=== PATIENT | male | born 1980 | race Caucasian/White ===

== ENCOUNTER 2020-09-20 15:42 | Emergency (ER) | payer OTHER ==
[~2020-09-20] VITALS: Ht 180.3 cm; Wt 79.9 kg
--- NOTE | 2020-09-20 15:54 | PHYS DOC ---
Adult General HPI HPI Patient is a 40-year-old male presents emergency department complaining of left- sided chest pain for the past 4 days. Patient states "I think this is post Covid stuff ", patient states that he was positive for the COVID-19 virus 2 months ago. Patient denies any recent trauma to his chest. 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 Patient rates his pain at a 5/10 1-10 pain scale. Patient states it started when he woke up 4 days ago. Patient reports that it hurts worse to take a deep breath and also hurts worse if he moves his arms. Patient states he has noticed a very minor cough with production of a small amount of yellowish colored sputum over the p ast 3 to 4 days. Patient denies any diaphoretic episodes, denies any nausea or vomiting. Patient states that 4 days ago he did feel little dizzy while he was at his computer but it resolved that day and has not had any dizziness over the past 3 days. Patient denies any recent fever or chills, shortness of breath, increased thirst or increased urination, denies urinary problems, denies numbness or tingling to his extremities. Patient denies any nasal congestion patient denies any sensory changes, denies loss of taste or smell, denies headaches. Patient states no one else living in his home is having the same symptoms as he. Patient reports his chest pain pain a 5/10 on a 1-10 pain scale. Patient's chest pain does not radiate. Patient has not taken anything for his pain. Patient reports nothing really makes it feel better however moving his left upper extremity and or taking a deep breath will elicit the pain and make it worse. (MARIO ZAPATA APRN) Review of Systems Review of Systems 14 body systems of review of systems have been reviewed. See HPI for pertinent positives and negative responses, otherwise all other systems are negative, nonpertinent or noncontributory. (MARIO ZAPATA APRN) Family History Family History Patient reports his father is healthy and takes no medications, patient reports his mother has history of hypertension. Patient denies any family history of diabetes or significant cardiac disease (MARIO ZAPATA APRN) Current Medications Current Medications Patient denies taking any emma-tir-knrdwca or prescription medications at home. (MARIO ZAPATA APRN) Allergies Allergies Patient denies any allergies to medications. (MARIO ZAPATA APRN) Physical Exam Physical Exam Constitutional: Well developed, well nourished, no acute distress, non-toxic appearance. HENT: Normocephalic, atraumatic, bilateral external ears normal, oropharynx moist, no oral exudates, nose normal. Eyes: PERRLA, EOMI, conjunctiva normal, no discharge. Neck: Normal range of motion, no tenderness, supple, no stridor. Cardiovascular:Heart rate regular rhythm, no murmur, heart sounds S1-S2 to auscultation. PMI fifth intercostal space just to the left of sternum. Lungs & Thorax: Bilateral breath sounds clear to auscultation all lung [place]. Abdomen: Bowel sounds normal, soft, no tenderness, no masses, no pulsatile masses. Skin: Warm, dry, no erythema, no rash. Back: No tenderness, no CVA tenderness. Extremities: No tenderness, no cyanosis, no clubbing, ROM intact, no edema. Neurologic: Alert and oriented X 3, normal motor function, normal sensory function, no focal deficits noted. Psychologic: Affect normal, judgement normal, mood normal. Musculoskeletal: Left pectoral muscle pain increases with passive range of motion of left upper extremity, deep inspiration deep expiration, is not reproducible to palpation. (MARIO ZAPATA APRN) EKG EKG EKG performed at 1623 by house respiratory therapy staff, heart rate 61 bpm normal sinus rhythm without ectopy, no acute STEMI, no acute ACS, no acute ischemia appreciated, CT interval 0.1140, QTc interval 0.396, EKG interpreted by ED attending Dr. Nevarez (MARIO ZAPATA APRN) Radiology/Procedures Radiology/Procedures SEX: M EXAM STATUS: REG ER ORD. PHYSICIAN: MARIO ZAPATA APRN REASON: CHEST PAIN PROCEDURE: CHEST PA & LATERAL Examination: XR CHEST 2V History: Reason: CHEST PAIN / Spl. Instructions: / History: Comparison/Correlation: None Findings: Frontal and lateral views of the chest were obtained. Heart size and pulmonary vasculature are normal. No infiltrate or effusion. Bony structures are unremarkable. No pneumothorax. Impression: No active disease. Electronically signed by: Zac Humphreys MD (09/20/2020 4:25 PM) [id number] DICTATED AND SIGNED BY: ZAC HUMPHREYS MD DATE: 09/20/20 1450 CC: MARIO ZAPATA APRN; PCP,NO ~MTH0 0 (MARIO ZAPATA APRN) Heart Score HEART Score for Chest Pain: HEART Score for Chest Pain Response (Comments) Value History Slighlty/Non-Suspicious 0 ECG Normal 0 Age < 45 0 Risk Factors 1 or 2 Risk Factors 1 Troponin < Normal Limit 0 Total 1 Risk Factors: Risk Factors: DM, Current or recent (<one month) smoker, HTN, HLP, family history of CAD, obesity. Risk Scores: Risk Factors: DM, Current or recent (<one month) smoker, HTN, HLP, family history of CAD, obesity. (MARIO ZAPATA APRN) Course & Med Decision Making Course & Med Decision Making Pertinent Labs and Imaging studies reviewed. (See chart for details) 40-year-old male presents emergency department left-sided chest pain, exam consistent with chest wall pain, however related to patient's age and recent history of Covid virus, cardiopulmonary work-up was initiated. Patient's EKG was negative for STEMI, ACS, ischemia, labs were negative for acute infection or acute process, chest x-ray was negative for acute findings interpreted by house radiologist. Patient was given 30 mg IV Toradol for 5/10 1-10 pain scale which relieved his pain. Discussed findings with patient and diagnosis most likely musculoskeletal chest wall pain, patient gave verbal understanding of discharge home instructions return to emergency room precautions and concerns, had no further questions or concerns, discharged home without incident. Impression: #1 chest wall pain #2 musculoskeletal pain (MARIO ZAPATA APRN) Course & Med Decision Making I oversaw on the above date of service of this patient and discussed the care with the SUBSTATION MECHANIC. Low risk for adverse cardiac events, close outpatient follow-up was advised. I agree with the findings, plan of care, and disposition as documented. (DWAOOD IVERSON DO) Dragon Disclaimer Dragon Disclaimer This electronic medical record was generated, in whole or in part, using a voice recognition dictation system. (MARIO ZAPATA APRN) Departure Departure: Impression: Primary Impression: Chest wall pain Additional Impression: Musculoskeletal chest pain Disposition: 01 DC HOME SELF CARE/HOMELESS Condition: GOOD Referrals: PCP,NO (PCP) Patient Instructions: Chest Wall Pain Additional Instructions: We have done an extensive focused work-up regarding your left-sided chest pain, your EKG was normal, your chest x-ray did not show any concerns for pneumonia or other infectious process or collapsed lung, your serum lab work was all within normal limits and did not indicate any infectious process or concerns for cardiac problems. You have been diagnosed with musculoskeletal chest wall pain, we have discussed that you may take tlsx-zvy-yuyjgyk Motrin and/or Aleve for pain and discomfort, please follow-up with your primary care physician if your symptoms do not resolve within the next several days. Please return to the emergency department for worsening symptoms or other concerns. EMERGENCY DEPARTMENT GENERAL DISCHARGE INSTRUCTIONS Thank you for coming to [facility] (ED) today and trusting us with you care. We trust that you had a positivie experience in our Emergency Department. If you wish to speak to the department management, you may call the director at [phone]. YOUR FOLLOW UP INSTRUCTIONS ARE FOLLOWS: 1. Do you have a private Doctor? If you do not have a private doctor, please ask for a resource list of physicians or clinics that may be able to assist you with follow up care. 2. The Emergency Physician has interpreted your x-rays. The X-Ray specialist will also review them. If there is a change in the findings, you will be notified in 48 hours when at all possible. 3. A lab test or culture has been done, your results will be reviewed and you will be notified if you need a change in treatment. ADDITIONAL INSTRUCTIONS AND INFORMATION: 1. Your care today has been supervised by a physician who is specially trained in emergency care. Many problems require more than one evaluation for a complete diagnosis and treatment. We recommend that you schedule your follow up appointment as recommended to ensure complete treatment of you illness or injury. If you are unable to obtain follow up care and continue to have a problem, or if your condition worsens, we recommend that you return to the ED. 2. We are not able to safely determine your condition over the phone nor are we able to give sound medical advice over the phone. For these safety reasons, if you call for medical advice we will ask you to come to the ED for further evaluation. 3. If you have any questions regarding these discharge instructions please call the ED at [phone]. SAFETY INFORMATION: In the interest of safety, wellness, and injury prevention; we encourage you to wear your sealbelt, if you smoke; quite smoking, and we encourage family to use a protective helmet for bicycling and other sporting events that present an increased risk for head injury. IF YOUR SYMPTOMS WORSEN OR NEW SYMPTOMS DEVELOP, OR YOU HAVE CONCERNS ABOUT YOUR CONDITION; OR IF YOUR CONDITION WORSENS WHILE YOU ARE WAITING FOR YOUR FOLLOW UP APPOINTMENT; EITHER CONTACT YOUR PRIMARY CARE DOCTOR, THE PHYSICIAN WHOSE NAME AND NUMBER YOU WERE GIVEN, OR RETURN TO THE ED IMMEDIATELY. Problem Qualifiers MARIO ZAPATA APRN Sep 20, 2020 15:54 DAWOOD IVERSON DO Sep 21, 2020 01:31
--- NOTE | 2020-09-20 16:28 | RAD ---
Examination: XR CHEST 2V History: Reason: CHEST PAIN / Spl. Instructions: / History: Comparison/Correlation: None Findings: Frontal and lateral views of the chest were obtained. Heart size and pulmonary vasculature are normal. No infiltrate or effusion. Bony structures are unremarkable. No pneumothorax. Impression: No active disease. Electronically signed by: Santiago Dan MD (09/20/2020 4:25 PM) [id number]
--- NOTE | 2020-09-20 16:36 | EKG ---
[facility] ED [facility] [place] [id number] Test Date: 2020-09-20 Test Time: 16:23:43 Pat Name: FRANKLIN MAYORGA Department: Room: Gender: M Quality Systems Engineer: : 1980 Requested By: MARIO ZAPATA Order Number: [id number] Reading MD: Measurements Intervals [place] Rate: 61 P: 52 MI: 140 QRS: 43 QRSD: 78 T: 54 QT: 392 QTc: 396 Interpretive Statements SINUS RHYTHM NORMAL ECG RI6.02 No previous ECG available for comparison
[2020-09-20] MEDS ORDERED: KETOROLAC 30 MG/ML VIAL. IVP ONE (17:00)
[2020-09-20 17:19] LABS: ANION GAP 8 (6-14); BLOOD UREA NITROGEN 21 mg/dL (8-26); BUN/CREATININE RATIO 19 (6-20); CALCIUM 8.8 mg/dL (8.5-10.1); CARBON DIOXIDE 31 mmol/L (21-32); CHLORIDE 102 mmol/L (98-107); CREATININE 1.1 mg/dL (0.7-1.3); GFR 74.9; GLUCOSE 123 mg/dL (70-99); POTASSIUM 3.8 mmol/L (3.5-5.1); SODIUM 141 mmol/L (136-145)
[2020-09-20 17:33] LABS: ALBUMIN/GLOBULIN RATIO 1.1 (1.0-1.7); ALK PHOS 72 U/L (46-116); ALT (SGPT) 32 U/L (16-63); AMYLASE 52 U/L (25-115); AST (SGOT) 27 U/L (15-37); MAGNESIUM 2.4 mg/dL (1.8-2.4); TOTAL BILIRUBIN 0.5 mg/dL (0.2-1.0); TOTAL PROTEIN 7.6 g/dL (6.4-8.2)
[2020-09-20 17:37] LABS: BASO % 1 % (0-3); EOS # 0.2 x10^3/uL (0.0-0.7); EOS % 4 % (0-3); HEMATOCRIT 43.6 % (39.0-53.0); HEMOGLOBIN 14.7 g/dL (13.0-17.5); LYMPH # 1.9 x10^3/uL (1.0-4.8); LYMPH % 33 % (24-48); MEAN CORPUSCULAR HEMOGLOBIN 30 pg (25-35); MEAN CORPUSCULAR HGB CONC 34 g/dL (31-37); MEAN CORPUSCULAR VOLUME 88 fL (79-100); MONO # 0.6 x10^3/uL (0.0-1.1); MONO % 10 % (0-9); NEUT % 53 % (31-73); PLATELET COUNT 175 x10^3/uL (140-400); RED BLOOD COUNT 4.95 x10^6/uL (4.30-5.70); RED CELL DISTRIBUTION WIDTH 12.5 % (11.5-14.5); WHITE BLOOD COUNT 5.7 x10^3/uL (4.0-11.0)
[2020-09-20 19:05] VITALS: BP 125/72
== END 2020-09-20 19:10 | disposition home or self-care (01) ==
LOC: ER 15:42
DX: R07.89 Other chest pain (principal); R05 Cough; R42 Dizziness and giddiness
CPT/HCPCS: 36415; 71046; 80053; 82150; 82553; 83690; 83735; 84484; 85025; 85379; 93005; 96374; 99285; J1885